=== PATIENT | male | born 2005 | race Caucasian/White ===

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

== ENCOUNTER 2025-04-09 19:09 | Inpatient (IN) ==
[2025-04-09 19:57] LABS: Hematocrit (blood only) 49.2 % (42.0-52.0); Hemoglobin 17.5 g/dL (14.0-18.0); Immature Granulocytes # (auto) 0.07 K/uL (0.01-0.20); Immature Granulocytes % (auto) 0.4 %; Mean Corpuscular Hemoglobin 29.2 pg (25.0-34.0); Mean Corpuscular Volume 82.0 fL (80.0-100.0); Platelet Count 365 K/uL (130-400); RDW Standard Deviation 37.7 fL (36.4-46.3); Red Blood Count 6.00 M/uL (4.70-6.10); White Blood Count 15.90 K/ul (4.8-10.8)
[2025-04-09 20:09] LABS: Appearance Urine Clear (Clear); Bacteria Urine Automated None Seen (None Seen); Cast Urine Automated 0-2 /lpf (0-2); Epithelial Cell Urine Auto 0-2 /hpf (0-2); Glucose Urine UA Negative (Negative); RBC Urine Automated 0-2 /hpf (0-2); WBC Urine Automated 0-5 /hpf (0-5)
[2025-04-09 20:15] LABS: Alanine Aminotransferase 32.0 U/L (7-52); Albumin Globulin Ratio 1.2 (0.9-2); Albumin Level 4.6 gm/dl (3.4-5.0); Alkaline Phosphatase 84.0 U/L (34-104); Anion Gap 11.0 (3-11); Bilirubin,Total 0.8 mg/dl (0.2-1.0); Blood Urea Nitrogen 14.0 mg/dl (6-23); Calcium 9.6 mg/dl (8.6-10.3); Carbon Dioxide 23.0 mmol/L (21-32); Chloride 105.0 mmol/L (98-107); Creatinine Clr Calc Pharmacy 148.6 ml/min; Globulin 3.7 gm/dl (2.5-4.0); Glucose 124.0 mg/dl (70-99(Fasting)); Potassium 3.6 mmol/L (3.5-5.1); Sodium 139.0 mmol/L (136-145); Total Protein 8.3 gm/dl (6.0-8.3)
[2025-04-09 20:29] LABS: Thyroid Stimulating Hormone 2.671 uIu/ml (0.300-4.500)
--- NOTE | 2025-04-09 21:15 | Emergency Department Note ---
History of Present Illness General Chief complaint: Mental Health Evaluation Stated complaint: MHE Time Seen by Provider: 04/09/25 19:39 Source: patient and family Mode of arrival: ambulatory Limitations: no limitations History of Present Illness Patient is a 19-year-old male with history of depression who presents for suicidal ideation. Patient reports he has been feeling like this on and off over the past several weeks but the thoughts have been getting worse. He states that he thought about stabbing himself in the throat with a knife and actually had a knife with him underneath his pillow last night. He also reports he has intermittent episodes that he calls "manic episodes" where he is unable to sleep for more than 3 hours at a time. He has never been diagnosed with bipolar disorder before but does take Lexapro at baseline for his depression. He has prior history of suicide attempt by suffocation. He also reports she has had a decrease in appetite recently has lost 6 pounds unintentionally in the past week. He reports he has some intermittent frontal lobe headaches that came on once he started his Lexapro 2 weeks prior. They are associated with flashers in his eyes that come and go. Denies any associated fevers, chills, neck stiffness, vision loss, double vision, slurred speech or facial droop. No numbness or weakness in his extremities. Denies drug or alcohol use at this time. No other medical complaints. Home Medications Medication Instructions Recorded Confirmed Type epinephrine 0.3 mg/0.3 mL 0.3 mg (0.3 mL) IM ONCE PRN 12/28/23 04/09/25 Rx injection, auto-injector anaphylaxis #1 dose pk dupilumab 300 mg/2 mL subcutaneous 300 mg (2 mL) subcut .COMPLEX #8 mL 05/18/24 04/09/25 Rx pen injector albuterol sulfate 2.5 mg/3 mL 2.5 mg (3 mL) inhalation Q4H PRN 07/07/24 04/09/25 Rx (0.083 %) solution for nebulization shortness of breath or wheezing #90 mL cholecalciferol (vitamin D3) 1,250 1,250 mcg PO .weekly 8 weeks #8 03/26/25 04/09/25 Rx mcg (50,000 unit) capsule caps escitalopram oxalate 10 mg tablet 10 mg PO DAILY 04/09/25 04/09/25 History (Lexapro) Allergies Allergy/AdvReac Type Severity Reaction Status Date / Time animal dander Allergy Unknown Congested Verified 04/09/25 20:42 pollen extracts Allergy Unknown Congested Verified 04/09/25 20:42 tree nut Allergy Unknown Congested Verified 04/09/25 20:42 egg white Allergy Unknown Congested Uncoded 04/09/25 20:42 Past Med/Surg History Problem List (Updated 04/09/25 @ 21:14 by Kavon Gonzales MD) Suicidal ideations (Acute) Vitamin D deficiency Anxiety MDD (major depressive disorder) Impaired fasting glucose Elevated blood pressure reading Overweight Eosinophilic esophagitis (~10/2021) Skin test positive for milk, eggs, nuts Allergic rhinitis Asthma (Acute 01/25/12) breo, PRN inhaler use Medical History Keratosis pilaris Inguinal pain Asthma Allergic rhinitis Elevated platelet count Slow to wake up after anesthesia History of COVID-19 Environmental and seasonal allergies Surgical History History of esophagogastroduodenoscopy (EGD) Hx of colonoscopy History of tonsillectomy and adenoidectomy Family History Father Irritable bowel syndrome (IBS) Asthma Mother No problems noted. Other No family history of adverse response to anesthesia Social History Smoking Status: Never smoker Second Hand Exposure: No; Do You Dip or Chew Tobacco: No; Hx Alcohol Use: No Hx Substance Use: No Preferred Language: [place] Communication Ability: Effective Visual Impairment: No Limitations Hearing Ability: Normal Commercial [employer] Estate [employer] Required: No Beliefs That Will Affect Care: None marital status: Single Current Living Situation: Family Current Living Situation Comment: lives with mom and dad current occupational status: unemployed Feels Safe at Home: Yes Childhood Exposure to Second-Hand Smoke: No Diet: regular caffeine: Yes Dental Care, Regularly: Yes Physical Activity Frequency: Does not Exercise Seatbelt Use: always Sunscreen Use: Yes Gender Identity: Male Assistive Devices: Nebulizer Review of Systems Review of systems negative outside of positive findings mentioned in HPI. Physical Exam Vital Signs Vital Signs - 24 hr 04/09/25 19:13 04/09/25 19:44 Temperature 36.8 C Temperature Source Temporal Artery Scan Pulse Rate 82 Pulse Rate [Left Finger] 102 H Respiratory Rate 20 18 Respiratory Effort / Characteristics Non-Labored Spontaneous Non-Labored Respiratory Depth Normal Normal Respiratory Pattern Regular Regular Blood Pressure 186/125 H Blood Pressure [Right Arm] 169/120 H Blood Pressure Mean 145 Blood Pressure Mean [Right Arm] 136 Blood Pressure Position Sitting Pulse Oximetry 97 97 Oxygen Delivery Method Room Air Room Air Sepsis Recent Fever Within 48 Hours No Sepsis New/Unexplained Change in Mental Status No Sepsis Action Taken by Nursing No Action Required See below Constitutional WD/WN, vitals as above Eyes PERRL, conjunctivae normal, anicteric sclerae ENMT external ear and nose normal, oropharynx normal Respiratory normal respiratory effort, lungs clear to auscultation Cardiovascular RRR, no murmur, no edema Gastrointestinal (Abdomen) normal bowel sounds, soft, nontender, no hepatosplenomegaly Skin no rashes, warm and dry Neurologic PERRL, EOMI, accommodation nl, no face palsy, no dysarthria Psychiatric A+Ox3, euthymic affect Apperance: appropriately dressed Eye Contact: good eye contact Speech: speech normal rate, rhythm, volume Affect: euthymic affect Thought Process: linear, logical thought process Suicidal Thoughts: + reports suicidal thoughts and + reports suicidal plan Homicidal Thoughts: denies suicidal thoughts and denies suicidal plan Hallucinations: no auditory hallucinations and no visual hallucinations Insight: good insight Judgment: + limited judgement Medical Decision Making Differential Diagnosis DDx includes but not limited to: Depression, anxiety, suicidal ideations, bipolar disorder, acute pñea, acute psychosis Medical Records Attestation: I reviewed the patient's medical records. Home Medications Current Medication List: was personally reviewed by me Laboratory Data Attestation: I reviewed the patient's lab results. 04/09/25 19:38 04/09/25 19:38 Lab Results 04/09/25 04/09/25 Range/Units 19:32 19:38 WBC 15.90 H (4.8-10.8) K/ul RBC 6.00 (4.70-6.10) M/uL Hgb 17.5 (14.0-18.0) g/dL Hct 49.2 (42.0-52.0) % MCV 82.0 (80.0-100.0) fL MCH 29.2 (25.0-34.0) pg MCHC 35.6 (32.0-36.0) g/dL RDW Std Deviation 37.7 (36.4-46.3) fL RDW Coeff of Bobbi 12.6 (11.5-14.5) % Plt Count 365 (130-400) K/uL MPV 10.9 (9.4-12.4) fL Immature Gran % (Auto) 0.4 % Neut % (Auto) 73.9 % Lymph % (Auto) 19.9 % [place] % (Auto) 4.7 % Eos % (Auto) 0.6 % Baso % (Auto) 0.5 % Neut # (Auto) 11.75 H (1.40-6.50) K/uL Lymph # (Auto) 3.16 (1.20-3.40) K/uL [place] # (Auto) 0.75 H (0.11-0.59) K/uL Eos # (Auto) 0.09 (0.00-0.50) K/uL Baso # (Auto) 0.08 (0.00-0.20) K/uL Immature Gran # (Auto) 0.07 (0.01-0.20) K/uL Sodium 139 (136-145) mmol/L Potassium 3.6 (3.5-5.1) mmol/L Chloride 105 (98-107) mmol/L Carbon Dioxide 23 (21-32) mmol/L Anion Gap 11 (3-11) BUN 14 (6-23) mg/dl Creatinine 0.99 (0.6-1.4) mg/dl Est Cr Clr Drug Dosing 148.6 ml/min eGFR 111.84 BUN/Creatinine Ratio 14.1 (10-20) Glucose 124 H (70-99(Fasting)) mg/dl Calcium 9.6 (8.6-10.3) mg/dl Total Bilirubin 0.8 (0.2-1.0) mg/dl AST 22 (13-39) U/L ALT 32 (7-52) U/L Alkaline Phosphatase 84 (34-104) U/L Total Protein 8.3 (6.0-8.3) gm/dl Albumin 4.6 (3.4-5.0) gm/dl Globulin 3.7 (2.5-4.0) gm/dl Albumin/Globulin Ratio 1.2 (0.9-2) TSH 2.671 (0.300-4.500) uIu/ml Urine Color Yellow Urine Appearance Clear (Clear) Urine pH 6.0 (4.5-7.5) Ur Specific Couch 1.027 (1.000-1.030) Urine Protein 1+ H (Negative) Urine Glucose (UA) Negative (Negative) Urine Ketones Trace H (Negative) Urine Blood Negative (Negative) Urine Nitrite Negative (Negative) Urine Bilirubin Negative (Negative) Urine Urobilinogen Negative (Negative) Ur Leukocyte Esterase Negative (Negative) Urine WBC (Auto) 0-5 (0-5) /hpf Urine RBC (Auto) 0-2 (0-2) /hpf U Hyaline Cast (Auto) 0-2 (0-2) /lpf U Epithel Cells (Auto) 0-2 (0-2) /hpf Urine Bacteria (Auto) None Seen (None Seen) Urine Comment Ethyl Alcohol mg/dL < 10.0 (<10.0) mg/dl SARS-CoV-2, RNA, NAAT NEGATIVE (NEGATIVE) Blood Pressure Blood Pressure Findings: Elevated blood pressure Blood Pressure Disposition: elevated BP felt to be situational MDM Narrative Patient is a 19-year-old male who presents for suicidal ideations. He is cooperative and appropriate here on my examination. I did speak with him and his parents who are at bedside who are currently. He has a history of depression and prior suicide attempts in the past. Did not actually stabbed himself with a knife. Did not require any medication for agitation or acute psychosis while here in the ED. Patient is willing to stay voluntarily to be evaluated by psychiatry. Lab work was ordered and reviewed. Mild leukocytosis noted. Likely adrenergic reaction in the setting of his ongoing stressors. No obvious source of infection or fever here today. Remaining lab work nonconcerning. Patient does mention intermittent headaches for the past 2 weeks which possibly could be a side effect of his recent start of Lexapro versus tension headache versus migraine headache. No focal neurologic deficits, or red flags on history concerning for underlying emergent cause of his headaches. His pain is tolerable here in the ED and he is not requesting anything for his headache at this time. At this point patient is medically cleared for psychiatric admission. Impression & Plan Suicidal ideations Discharge Plan Visit Data Chief Complaint: Mental Health Evaluation Stated Complaint: MHE ED Provider: Kavon Gonzales Discharge Problem: Suicidal ideations Patient Disposition: Admitted As Inpatient Condition: Good Forms Stand Alone Forms: My [facility], Suicide Prevention Resources Prescriptions Prescriptions: No Action epinephrine 0.3 mg/0.3 mL auto-injector 0.3 mg IM ONCE PRN (Reason: anaphylaxis) Qty: 1 3RF Patient Comments: never used. Rx Instructions: May repeat once in 10 minutes if symptoms have not improved with first dose dupilumab 300 mg/2 mL pen injector 300 mg subcut .COMPLEX Qty: 8 11RF Rx Instructions: INJECT 300 mg subcutaneously EVERY MONTH APPROVED GOOD 05/27/23-07/24/24 albuterol sulfate 2.5 mg /3 mL (0.083 %) solution for nebulization 2.5 mg inhalation Q4H PRN (Reason: shortness of breath or wheezing) Qty: 90 6RF Patient Comments: patient reports it was several weeks ago when he last used this medication. cholecalciferol (vitamin D3) 1,250 mcg (50,000 unit) capsule 1,250 mcg PO .weekly 56 Days Qty: 8 0RF escitalopram oxalate [Lexapro] 10 mg tablet 10 mg PO DAILY Referrals Referrals: Ron Roldan DO [Primary Care Provider] -
[2025-04-09 21:18] LABS: Amphetamines+Metham, Urine Neg (Neg); MDMA (Ecstacy), Urine Neg (Neg); Marijuana, Urine Neg (Neg)
[2025-04-09 21:31] LABS: Acetaminophen < 3 ug/ml (10-30); Salicylate < 3.0 mg/dl (3.0-30)
[2025-04-09] MEDS ORDERED: SODIUM CHLORIDE 0.65% NA SOLN 45 ML (OCEAN) PRN (22:40)
[2025-04-09] MEDS ORDERED: ACETAMINOPHEN 325 MG TAB PO PRN (22:40)
[2025-04-09] MEDS ORDERED: BISMUTH SUBSALICYLATE 262 MG CHEW PO PRN (22:40)
[2025-04-09] MEDS ORDERED: MAGNESIUM HYDROXIDE SUSP 30 ML UDC PO PRN (22:40)
[2025-04-09] MEDS ORDERED: ALUMINUM/MAGNESIUM SUSP 30 ML UDC PO PRN (22:40)
[2025-04-09] MEDS ORDERED: LORazepam 1 MG TAB PO PRN (22:43)
[2025-04-10] MEDS ORDERED: ALBUTEROL HFA 8 GM INHALER INH PRN (00:14)
--- NOTE | 2025-04-10 10:34 | History & Physical ---
Date of Service April 10, 2025 Impression / Recommendations Impression MARCUS RICHARDS is a 19-year-old man who currently lives in [place] with his mother and father, has a history of depression, ADHD, anxiety, speech and auditory processing disorders and was admitted on 04/09/25 22:33 on a 201 voluntary commitment for worsening depression and SI and rehearsal behaviors of using a knife. Diagnostically consistent with unspecified depression with differential including major depressive disorder versus bipolar affective disorder type II current depressive episode given possible family history of bipolar disorder, depression starting at a young age and possible history of hypomania versus borderline personality disorder given history of mood lability, self-harm, chronic intermittent SI but also with stable relationships and no known history of anger outbursts. Additionally, some of his episodes of hypomania-type symptoms may also represent increased impulsivity and hyperactivity related to ADHD rather than a bipolar spectrum disorder. He also meets criteria for gene ralized anxiety disorder with panic attacks and possible OCD. His description of at times quite fixated and more atypical interests could overlap with ASD but seems he has good social-communication and social reciprocity skills. Discussed that I also wonder about CALVIN given his difficulty sleeping, low energy, headaches, increased blood pressure and staff observation overnight of very loud snoring. CALVIN if undiagnosed and untreated can lead to depression and can make depression less responsive to medication treatment. Discussed medication treatment options in detail. Discussed risks, benefits and alternatives. Patient would like to start and consented to sertraline for depression, anxiety and possible OCD as well as clonidine for ADHD and off-label for anxiety/insomnia and trazodone as needed for insomnia/depression. Reviewed side effects including but not limited to: GI, CRENSHAW, sexual side effects, and counseled on black box warning of potential for emergence of or increased SI and need to let staff know should this occur or should they feel unsafe. Also discussed importance of seeking emergency care following discharge if this side effect occurs in the future with sertraline; low BP/syncope with clonidine and need to make positional changes slowly and sedation/weight gain/priapism with trazodone. MNPR due to loud snoring which was disruptive to roommate Overall I spent a total of 75 minutes for this admission including review of chart records, review of labwork, direct evaluation of the patient (60 minutes interview), counseling the patient, ordering medication, risk assessment, discussion with the psychiatric liason RN and documentation in the electronic health record. (1) Depression with suicidal ideation: (2) Generalized anxiety disorder with panic attacks: (3) ADHD: (4) Vitamin D deficiency: (5) Eosinophilic esophagitis: Plan 04/10/2025: The patient was admitted to the [facility] ([facility]) on q15 min checks (behavioral with suicide precautions) for safety. The patient will participate in group, recreational, and milieu therapies and will be offered additional individual and family sessions as clinically appropriate. -Medications: * discontinue escitalopram due to ongoing side effects * start sertraline 25 mg daily * start trazodone 50mg HS prn for insomnia * start clonidine 0.1mg HS * continue Vit D supplementation qweekly -Symptom questionnaires: Laurent BPD, MDQ, PHQ-9, ANETA-7, Y-BOCS, [place] sleepiness scale - to explore outpatient referrals, we discussed option for IOP to focus on CBT/DBT skills which he's interested in -Consider outpatient sleep study (he had one in childhood prior to tonsillectomy) given concern for possible CALVIN Inventory Assets Strengths: supportive relationships, willing to get treatment Needs: safety and stabilization, medication adjustment, additional coping skills, increased outpatient services Suicide Risk Level Suicide Risk Level: Moderate (q15 min suicide checks) (depression with rehearsal behaviors prior to admission but now denies SI, reports some improvement in mood and feels able to alert staff if he needs support or feels unsafe ) Risk Factors Assessment Male: Yes : Yes Do You Have Access To A Gun?: No (guns locked and he has no access to keys) Health Problems: Yes Mental Health Diagnoses: Yes Substance Use Disorders: No Previous Attempt: Yes Family History of Suicide: Yes (cousin with attempt) Previous Psychiatric Hospitalization: No Hopelessness: Yes (some but also future-oriented) Protective Factors Assessment : No Responsible for Young Children: No Employed: Yes ([employer]) Stable Relationships: Yes Supportive Family: Yes Good Rapport with Provider: Yes (but no outpatient psych/therapy providers) Psychiatric History Identifying Data MARCUS RICHARDS is a 19-year-old man who currently lives in [place] with his mother and father, has a history of depression, ADHD, anxiety, speech and auditory processing disorders and was admitted on 04/09/25 22:33 on a 201 voluntary commitment for worsening depression and SI and rehearsal behaviors of using a knife. Chief Complaint "It accumulated and I was exhausted and the knife was there". History of Present Illness Marcus presents for psychiatric admission for worsening depression and SI over the past two months with recent plan of using a knife culminating in rehearsal behavior/near attempt of putting a knife to his neck and then sleeping with it under his pillow two nights ago. There have been no acute stressors or recent changes but he describes some more chronic psychosocial stressors including bullying/trauma in elementary/middle/high school and started a new job about 6 months ago which has been very busy and stressful at times. Two nights ago he had increased SI at bedtime and "I kind of felt manic, I couldn't sit still, I couldn't think" and neither of his friends was available to talk, his grandparents were asleep and his parents were at their home and he thought about using the knife and put it to his skin but then put it down and fell asleep with it next to his pillow. A few weeks ago he did look up where his heart is and where one would need to stab to harm the heart but he felt this research actually helped "demotivate me" because he read about how much pain it could cause and he decided he would not try to kill himself that way. He denies researching anything about where to cut himself on his neck and did not break the skin with the knife. He thought about how much his friends and family would be negatively impacted if he and that's what stopped him from acting on his suicidal thoughts. He ultimately texted his friend saying he'd miss her and she reached out to his parents. He presented to the ED the next day. He's been having suicidal thoughts for "months now" and that they have become more difficult to manage, describing feeling "mentally exhausted from constantly fighting these thoughts". He recalls having suicidal ideation for 5 years straight during childhood. He feels that typically he can cope with these using distraction but feels like due to worsening depression and feeling exhausted that two nights ago he felt unable to avoid acting on the thoughts. Recently he feels like "my brain went blank". He's been having a lot of headaches recently with some flickering light appearance. The headaches started right around the time he started escitalopram. He's been having a lot of nausea since starting the escitalopram and believes he's lost about 6 lbs in a few days. He endorses depressive symptoms including tearfulness, anhedonia ("everything feels like a chore"), decreased motivation ("hard to even brush my teeth for a week"), self-guilt ("I didn't feel like I deserved to live"), helplessness, hopelessness, decreased energy, decreased appetite (mostly due to nausea), and decreased sleep about 2-4 hours per night (difficulty falling asleep). SI has been occurring intermittently throughout his life but worsened about two months ago to daily thoughts which he notes "just gets taxing", he started to think about plans of using a knife about 3 weeks ago before he started the escitalopram. He identifies that not having his craving knife would help him feel safer and he plans to give this to his parents. He endorses symptoms of anxiety including generalized worries, shakiness, easily overwhelmed, can get worse in social situations and panic attacks (rare usually but increased recently to about 1-2 times per week). Anxiety has also increased over the last few months. He describes having intense interests as a child including "spending hours on equations" and describes being "hyper-curious about everything". He is currently prescribed escitalopram 10mg (started 2 weeks ago, had nausea and headaches since started it, hasn't noticed any benefits so far). Today he reports his mood feels better, "like a 9, today" because he feels that "the real world is stressful and taking a break from that can help". He notes that "typically I'm happy throughout the day and nighttime hits the hardest". Psychiatric ROS notable for possible history of hypomania with decreased need for sleep for 2-3 nights, and also reports always being a night owl but at times with some increased risk taking and increased energy. Possible OCD traits (will wash hands three times in a row until they feel "clean"); history fo excessive exercising to lose weight and restricting to lose eat and other times would binge eat, he feels this is stable currently; history of self-harm via pinching. Psychiatric ROS notable for no history or current symptoms of psychosis, PTSD. Past Psychiatric History Current Psychiatric Diagnosis: Depression and anxiety, unspecified mood disorder Outpatient Services: none Previous Psych Admissions: never Do You Have Access To A Gun?: No (guns locked and he has no access to keys) History of Previous Suicide Attempt: Yes Describe Attempts in the Past: 200x over 5 yrs in elementary toni-suffocation but rehearsal behaviors Past Medication Trials: -Wellbutrin about a month ago (ongoing SI) Past Head Trauma/Neuro History History of Concussion/Seizure: No Allergies Allergy/AdvReac Type Severity Reaction Status Date / Time animal dander Allergy Unknown Congested Verified 04/09/25 20:42 egg Allergy Unknown "egg Verified 04/10/25 12:11 white" congested pollen extracts Allergy Unknown Congested Verified 04/09/25 20:42 tree nut Allergy Unknown Congested Verified 04/09/25 20:42 Home Medications Medication Instructions Recorded Confirmed Type epinephrine 0.3 mg/0.3 mL 0.3 mg (0.3 mL) IM ONCE PRN 12/28/23 04/09/25 Rx injection, auto-injector anaphylaxis #1 dose pk dupilumab 300 mg/2 mL subcutaneous 300 mg (2 mL) subcut .COMPLEX #8 mL 05/18/24 04/09/25 Rx pen injector albuterol sulfate 2.5 mg/3 mL 2.5 mg (3 mL) inhalation Q4H PRN 07/07/24 04/09/25 Rx (0.083 %) solution for nebulization shortness of breath or wheezing #90 mL cholecalciferol (vitamin D3) 1,250 1,250 mcg PO .weekly 8 weeks #8 03/26/25 04/09/25 Rx mcg (50,000 unit) capsule caps escitalopram oxalate 10 mg tablet 10 mg PO DAILY 04/09/25 04/09/25 History (Lexapro) Family History Family History of: Depression (maternal and paternal), Anxiety (maternal and paternal), Suicide Attempts (maternal cousin) and Other-List under Comment (maternal cousin with suspected schizophrenia; possible bipolar d/o in maternal grandfather) Alcohol History Hx of Alcohol Use Over the Past 12 Months: No AUDIT Total Score: 0 Smoking Use Have You Smoked or Used Tobacco Products in the Last 30 Days: No Smoking Status: Never smoker Substance History Hx of Prescription Med Misuse Over the Past 12 Months: No Hx of Over the Counter Med Misuse Over the Past 12 Months: No Hx of Inhalent Misuse Over the Past 12 Months: No Hx of Organic Substance Use Over the Past 12 Months: No Hx of Illegal Substances/Street Drug Use Over Past 12 Months: No Problems as a Result of Past Substance Use: None Identified Personal History Living Arrangements: Home Highest Grade Completed: High School Graduate (-IEP for depression/anxiety/stress; speech issues for pronunciation, ADHD, auditory processing disorder) 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) Marital Status: Single Number Of Children: none Beliefs That Will Affect Care: None Current Legal Problems: No Hx Legal Problems: No Hx Traumatic Life Events: Yes Patient History Medical History (Updated 04/10/25 @ 12:39 by Clarissa Barone MD) ADHD Eosinophilic esophagitis (~10/2021) Skin test positive for milk, eggs, nuts Keratosis pilaris Inguinal pain Asthma PRN inhaler use Allergic rhinitis follows w/ Dr Charlton Elevated platelet count Slow to wake up after anesthesia History of COVID-2020- fever, congestion, fatigue, resolved Environmental and seasonal allergies Surgical History History of esophagogastroduodenoscopy (EGD) Hx of colonoscopy History of tonsillectomy and adenoidectomy Family History Father Irritable bowel syndrome (IBS) Asthma Mother No problems noted. Other No family history of adverse response to anesthesia Social History Smoking Status: Never smoker Second Hand Exposure: No; Do You Dip or Chew Tobacco: No; Hx Alcohol Use: No Hx Substance Use: No Preferred Language: Lao Communication Ability: Effective Visual Impairment: No Limitations Hearing Ability: Normal Window Systems Administrator Required: No Beliefs That Will Affect Care: None marital status: Single Current Living Situation: Family Current Living Situation Comment: lives with mom and dad current occupational status: unemployed Feels Safe at Home: Yes Childhood Exposure to Second-Hand Smoke: No Diet: regular caffeine: Yes Dental Care, Regularly: Yes Physical Activity Frequency: Does not Exercise Seatbelt Use: always Sunscreen Use: Yes Gender Identity: Male Assistive Devices: None and Nebulizer Review of Systems Review of Systems: All systems reviewed & are unremarkable except as noted in HPI & below Physical Exam Psychiatric: Orientation: alert and oriented x 3 Apperance: appropriately dressed and appropriately groomed Eye Contact: good eye contact Motor Behavior: no abnormal motor movements Speech: normal rate/rhythm/volume of speech Affect: + depressed affect and + anxious affect Mood: + depressed mood and + anxious mood Thought Process: goal directed thought process Thought Content: reality based without delusions Suicidal Thoughts: denies suicidal plan (none for hospital, rehearsal behaviors prior to admission) and denies suicidal intent; + reports suicidal thoughts (intermittent ) Homicidal Thoughts: denies homicidal thoughts Hallucinations: no auditory hallucinations and no visual hallucinations Cognition: recent memory grossly intact, remote memory grossly intact, attention grossly intact and language grossly intact Estimated Intelligence: consistent with education level Insight: + fair insight Judgment: + fair judgement Vital Signs (Past 24 Hours): Last Vital Signs Temp 36.3 C L 04/10/25 06:29 Pulse 78 04/10/25 06:30 Resp 16 04/10/25 06:29 BP 118/67 04/10/25 06:30 Pulse Ox 97 04/09/25 23:06 O2 Del Method Room Air 04/09/25 23:06 Exam Statement: A physical exam was performed in the ED by Dr. Gonzales for the purposes of medical clearance. I accept that physical as correct and adequate for the purposes of the inpatient physical exam. Results & Data ([facility]) Laboratory Results Laboratory Results - last 24 hr 04/09/25 04/09/25 19:32 19:38 WBC 15.90 H RBC 6.00 Hgb 17.5 Hct 49.2 MCV 82.0 MCH 29.2 MCHC 35.6 RDW Std Deviation 37.7 RDW Coeff of Bobbi 12.6 Plt Count 365 MPV 10.9 Immature Gran % (Auto) 0.4 Neut % (Auto) 73.9 Lymph % (Auto) 19.9 [place] % (Auto) 4.7 Eos % (Auto) 0.6 Baso % (Auto) 0.5 Neut # (Auto) 11.75 H Lymph # (Auto) 3.16 [place] # (Auto) 0.75 H Eos # (Auto) 0.09 Baso # (Auto) 0.08 Immature Gran # (Auto) 0.07 Sodium 139 Potassium 3.6 Chloride 105 Carbon Dioxide 23 Anion Gap 11 BUN 14 Creatinine 0.99 Est Cr Clr Drug Dosing 148.6 eGFR 111.84 BUN/Creatinine Ratio 14.1 Glucose 124 H Calcium 9.6 Total Bilirubin 0.8 AST 22 ALT 32 Alkaline Phosphatase 84 Total Protein 8.3 Albumin 4.6 Globulin 3.7 Albumin/Globulin Ratio 1.2 TSH 2.671 Urine Color Yellow Urine Appearance Clear Urine pH 6.0 Ur Specific [place] 1.027 Urine Protein 1+ H Urine Glucose (UA) Negative Urine Ketones Trace H Urine Blood Negative Urine Nitrite Negative Urine Bilirubin Negative Urine Urobilinogen Negative Ur Leukocyte Esterase Negative Urine WBC (Auto) 0-5 Urine RBC (Auto) 0-2 U Hyaline Cast (Auto) 0-2 U Epithel Cells (Auto) 0-2 Urine Bacteria (Auto) None Seen Urine Comment Salicylates < 3.0 L Urine Opiates Screen Neg Ur Methadone, Qual Neg Urine Fentanyl Screen Neg Acetaminophen < 3 L Urine Barbiturates Neg Ur Phencyclidine (PCP) Neg U Amphetamin/Meth Scrn Neg MDMA (Ecstasy) Screen Neg U Benzodiazepines Scrn Neg Ur Cocaine Metabolite Neg U Marijuana (THC) Screen Neg Ethyl Alcohol mg/dL < 10.0 SARS-CoV-2, RNA, NAAT NEGATIVE Current Inpatient Medications Current Inpatient Medications: Current Inpatient Medications Acetaminophen (Acetaminophen 325 Mg Tab) 650 mg PO Q4H PRN PRN Reason: Headache or Minor Fever Stop: 05/09/25 22:39 Al Hydrox/Mg Hydrox/Simethicone (Aluminum/Magnesium Susp 30 Ml Udc) 30 ml PO Q4H PRN PRN Reason: GI Upset Stop: 05/09/25 22:39 Albuterol (Albuterol Hfa 8 Gm Inhaler) 2 puffs INH QIDR PRN PRN Reason: Shortness Of Breath Or Wheezing Stop: 05/10/25 00:13 Bismuth Subsalicylate (Bismuth Subsalicylate 262 Mg Chew) 2 tab PO Q30M PRN PRN Reason: Loose Stool/Diarrhea Stop: 05/09/25 22:39 Hydroxyzine HCl (Hydroxyzine Hcl 25 Mg Tab) 50 mg PO HSZ PRN PRN Reason: Insomnia Stop: 05/09/25 22:39 Hydroxyzine HCl (Hydroxyzine Hcl 25 Mg Tab) 25 mg PO Q4H PRN PRN Reason: Anxiety Stop: 05/09/25 22:39 Lorazepam (Lorazepam 1 Mg Tab) 1 mg PO BID PRN PRN Reason: Agitation Stop: 05/09/25 22:42 Magnesium Hydroxide (Magnesium Hydroxide Susp 30 Ml Udc) 30 ml PO DAILY PRN PRN Reason: Constipation Stop: 05/09/25 22:39 Sodium Chloride (Sodium Chloride 0.65% Na Soln 45 Ml ([place])) 1 - 2 sprays NA PRN PRN PRN Reason: Nasal Dryness/Congestion Stop: 05/09/25 22:39
[2025-04-10] MEDS ORDERED: ALBUTEROL 0.083% NEBU SOLN 3 ML VIAL INH PRN (11:37)
[2025-04-10] MEDS: SERTRALINE HCL 50 MG TABLET PO SCH (11:48)
--- NOTE | 2025-04-11 08:27 | Psychiatric Progress Note ---
Date of Service April 11, 2025 Impression / Recommendations Impression SONU RICHARDS is a 19-year-old man who currently lives in [place] with his mother and father, has a history of depression, ADHD, anxiety, speech and auditory processing disorders and was admitted on 04/09/25 22:33 on a 201 voluntary commitment for worsening depression and SI and rehearsal behaviors of using a knife. Diagnostically consistent with unspecified depression with differential including major depressive disorder versus bipolar affective disorder type II current depressive episode given possible family history of bipolar disorder, depression starting at a young age and possible history of hypomania versus borderline personality disorder given history of mood lability, self-harm, chronic intermittent SI but also with stable relationships and no known history of anger outbursts. Additionally, some of his episodes of hypomania-type symptoms may also represent increased impulsivity and hyperactivity related to ADHD rather than a bipolar spectrum disorder. He also meets criteria for gen eralized anxiety disorder with panic attacks and possible OCD. His description of at times quite fixated and more atypical interests could overlap with ASD but seems he has good social-communication and social reciprocity skills. Discussed that I also wonder about CALVIN given his difficulty sleeping, low energy, headaches, increased blood pressure and staff observation overnight of very loud snoring. CALVIN if undiagnosed and untreated can lead to depression and can make depression less responsive to medication treatment. A: Depression improving, suspect the degree to which he reports may be partially due to some minimization vs flight into health driven by social anxiety and homesickness and difficulty utilizing new coping skills. He's tolerating medication changes so far, he consents to ongoing sertraline titration to target depression, anxiety and OCD. Reviewed and discussed symptom questionnaires which were notable for: PHQ-9 score of 24 (3 for Q9), ANETA-7 score of 19, MDQ positive screen (possible BPAD type II, but also never with negative consequences from past episodes of possible hypomania), De La Torre positive screen (possible but also suspect some symptom overlap in setting of depression) and positive Y-BOCS (consistent with OCD & symptoms interfere with functioning and work) and score of 7 on [place] Sleepiness Scale so reasonable to consider outpatient CALVIN workup/sleep study given snoring and co-occurring depression. He prefers not to start a mood stabilizer at this time and instead to track his sleep and mood overtime which is reasonable, reviewed potential risk of hypomania/peña with sertraline which he understands. MNPR due to loud snoring which was disruptive to roommate Overall, I spent a total of 50 minutes on this case including meeting with the patient, reviewing the chart, nursing report, multidisciplinary team meeting, orders, and documentation. (1) Depression with suicidal ideation: (2) Generalized anxiety disorder with panic attacks: (3) Obsessive compulsive disorder: (4) ADHD: (5) Vitamin D deficiency: (6) Eosinophilic esophagitis: (7) Major depressive disorder with current active episode: Plan 04/11/2025: -Increase sertraline to 50mg daily tomorrow -Exploring IOP vs individual outpt therapy 04/10/2025: The patient was admitted to the [facility] ([facility] unit) on q15 min checks (behavioral with suicide precautions) for safety. The patient will participate in group, recreational, and milieu therapies and will be offered additional individual and family sessions as clinically appropriate. -Medications: * discontinue escitalopram due to ongoing side effects * start sertraline 25 mg daily * start trazodone 50mg HS prn for insomnia * start clonidine 0.1mg HS * continue Vit D supplementation qweekly -Symptom questionnaires: De La Torre BPD, MDQ, PHQ-9, ANETA-7, Y-BOCS, [place] sleepiness scale - to explore outpatient referrals, we discussed option for IOP to focus on CBT/DBT skills which he's interested in -Consider outpatient sleep study (he had one in childhood prior to tonsillectomy) given concern for possible CALVIN Inventory Assets Strengths: supportive relationships, willing to get treatment Needs: safety and stabilization, medication adjustment, additional coping skills, increased outpatient services Suicide Risk Level Suicide Risk Level: Moderate (q15 min suicide checks) (depression with rehearsal behaviors prior to admission but now denies SI, reports some improvement in mood and feels able to alert staff if he needs support or feels unsafe ) Risk Factors Assessment Male: Yes : Yes Do You Have Access To A Gun?: No (guns locked and he has no access to keys) Health Problems: Yes Mental Health Diagnoses: Yes Substance Use Disorders: No Previous Attempt: Yes Family History of Suicide: Yes (cousin with attempt) Previous Psychiatric Hospitalization: No Hopelessness: Yes (some but also future-oriented) Protective Factors Assessment : No Responsible for Young Children: No Employed: Yes ([employer]) Stable Relationships: Yes Supportive Family: Yes Good Rapport with Provider: Yes (but no outpatient psych/therapy providers) Interval History Identifying Information SONU RICHARDS is a 19-year-old man who currently lives in [place] with his mother and father, has a history of depression, ADHD, anxiety, speech and auditory processing disorders and was admitted on 04/09/25 22:33 on a 201 voluntary commitment for worsening depression and SI and rehearsal behaviors of using a knife. Chief Complaint "Doing pretty good but I'm getting restless and homesick". Review of Systems Sleep Information Total Hours of Sleep: 8 Meal Information Percent Meal Consumed - Breakfast: 0 Percent Meal Consumed - Lunch: 100 Percent Meal Consumed - Dinner: 100 Subjective Subjective Patient was seen & assessed and interval progress reviewed with treatment team. Attended all groups and participated. Rated his mood "10" and "fantastic". Today he reports hopefulness he can discharge tomorrow due to feeling "restless and homesick". Reviewed things that he can do here to stay occupied like reading books. Also processed that it during times of increased stress and discomfort when we can best test his coping skills and learn new healthier ways of managing distress while in the supportive environment of the hospital. he agrees this makes sense. [facility], hasn't called yet but reviewed it with his parents when they visited last evening. No side effects from the medications. No headache today, still has low appetite but eating and denies any nausea. Denies SI today. Physical Exam Psychiatric Orientation: alert and oriented x 3 Apperance: appropriately dressed and appropriately groomed Eye Contact: good eye contact Motor Behavior: no abnormal motor movements Speech: normal rate/rhythm/volume of speech Affect: + anxious affect and + constricted affect Mood: + anxious mood Thought Process: goal directed thought process Thought Content: reality based without delusions Suicidal Thoughts: denies suicidal plan and denies suicidal intent; + reports suicidal thoughts (intermittent, denies today ) Homicidal Thoughts: denies homicidal thoughts Hallucinations: no auditory hallucinations and no visual hallucinations Cognition: recent memory grossly intact, remote memory grossly intact, attention grossly intact and language grossly intact Estimated Intelligence: consistent with education level Insight: + fair insight Judgment: + fair judgement Vital Signs (Past 24 Hours) Last Vital Signs Temp 36.6 C 04/11/25 06:40 Pulse 74 04/11/25 06:40 Resp 20 04/11/25 06:40 BP 126/85 04/11/25 06:40 Pulse Ox 99 04/11/25 06:40 O2 Del Method Room Air 04/11/25 06:40 Results & Data ([facility]) Current Inpatient Medications Current Inpatient Medications: Current Inpatient Medications Acetaminophen (Acetaminophen 325 Mg Tab) 650 mg PO Q4H PRN PRN Reason: Headache or Minor Fever Stop: 05/09/25 22:39 Al Hydrox/Mg Hydrox/Simethicone (Aluminum/Magnesium Susp 30 Ml Udc) 30 ml PO Q4H PRN PRN Reason: GI Upset Stop: 05/09/25 22:39 Albuterol (Albuterol Hfa 8 Gm Inhaler) 2 puffs INH QIDR PRN PRN Reason: Shortness Of Breath Or Wheezing Stop: 05/10/25 00:13 Albuterol (Albuterol 0.083% Nebu Soln 3 Ml Vial) 2.5 mg INH Q4H PRN; Protocol PRN Reason: shortness of breath or wheezing Stop: 05/10/25 11:36 Bismuth Subsalicylate (Bismuth Subsalicylate 262 Mg Chew) 2 tab PO Q30M PRN PRN Reason: Loose Stool/Diarrhea Stop: 05/09/25 22:39 Clonidine HCl (Clonidine Hcl 0.1 Mg Tab) 0.1 mg PO HS LEEANN Stop: 05/10/25 21:59 Last Admin: 04/10/25 21:18 Dose: 0.1 mg Hydroxyzine HCl (Hydroxyzine Hcl 25 Mg Tab) 50 mg PO HSZ PRN PRN Reason: Insomnia Stop: 05/09/25 22:39 Hydroxyzine HCl (Hydroxyzine Hcl 25 Mg Tab) 25 mg PO Q4H PRN PRN Reason: Anxiety Stop: 05/09/25 22:39 Lorazepam (Lorazepam 1 Mg Tab) 1 mg PO BID PRN PRN Reason: Agitation Stop: 05/09/25 22:42 Magnesium Hydroxide (Magnesium Hydroxide Susp 30 Ml Udc) 30 ml PO DAILY PRN PRN Reason: Constipation Stop: 05/09/25 22:39 Non-Formulary Medication (Cholecalciferol (Vitamin D3)) 1,250 mcg PO Mo@0900 LEEANN Stop: 05/10/25 11:44 Last Admin: 04/10/25 13:42 Dose: 1,250 mcg Sertraline HCl (Sertraline Hcl 50 Mg Tablet) 25 mg PO QAM LEEANN Stop: 05/10/25 11:34 Last Admin: 04/10/25 11:48 Dose: 25 mg Sodium Chloride (Sodium Chloride 0.65% Na Soln 45 Ml ([place])) 1 - 2 sprays NA PRN PRN PRN Reason: Nasal Dryness/Congestion Stop: 05/09/25 22:39 Trazodone HCl (Trazodone Hcl 50 Mg Tab) 50 mg PO HS PRN PRN Reason: insomnia Stop: 05/10/25 21:59 Mental Health & Subst Abuse Tx Therapist Name of Therapist: n/a Diesel Dragline Operator Name of Diesel Dragline Operator: n/a Post Discharge Appointments Primary Care Physician Name Of Family Doctor/PCP: Ron Roldan - [facility] [place] [facility]
[2025-04-12 06:36] VITALS: RESP 16
[2025-04-12] MEDS: SERTRALINE HCL 50 MG TABLET PO SCH (08:42)
--- NOTE | 2025-04-12 08:44 | Psychiatric Progress Note ---
Date of Service April 12, 2025 Impression / Recommendations Impression SONU RICHARDS is a 19-year-old man who currently lives in [place] with his mother and father, has a history of depression, ADHD, anxiety, speech and auditory processing disorders and was admitted on 04/09/25 22:33 on a 201 voluntary commitment for worsening depression and SI and rehearsal behaviors of using a knife. Diagnostically consistent with unspecified depression with differential including major depressive disorder versus bipolar affective disorder type II current depressive episode given possible family history of bipolar disorder, depression starting at a young age and possible history of hypomania versus borderline personality disorder given history of mood lability, self-harm, chronic intermittent SI but also with stable relationships and no known history of anger outbursts. Additionally, some of his episodes of hypomania-type symptoms may also represent increased impulsivity and hyperactivity related to ADHD rather than a bipolar spectrum disorder. He also meets criteria for gen eralized anxiety disorder with panic attacks and possible OCD. His description of at times quite fixated and more atypical interests could overlap with ASD but seems he has good social-communication and social reciprocity skills. Discussed that I also wonder about CALVIN given his difficulty sleeping, low energy, headaches, increased blood pressure and staff observation overnight of very loud snoring. CALVIN if undiagnosed and untreated can lead to depression and can make depression less responsive to medication treatment. A: Depression continues to improve with no SI today. He is tolerating the m edication changes well with improvement of nausea and headaches with switch to sertraline from escitalopram. he is motivated for IOP. MNPR due to loud snoring which was disruptive to roommate Overall, I spent a total of 35 minutes on this case including meeting with the patient, reviewing the chart, nursing report, orders, and documentation. (1) Depression with suicidal ideation: (2) Generalized anxiety disorder with panic attacks: (3) Obsessive compulsive disorder: (4) ADHD: (5) Vitamin D deficiency: (6) Eosinophilic esophagitis: (7) Major depressive disorder with current active episode: Plan 04/12/2025: -Continue current medications and treatment plan 04/11/2025: -Increase sertraline to 50mg daily tomorrow -Exploring IOP vs individual outpt therapy 04/10/2025: The patient was admitted to the [facility] on q15 min checks (behavioral with suicide precautions) for safety. The patient will participate in group, recreational, and milieu therapies and will be offered additional individual and family sessions as clinically appropriate. -Medications: * discontinue escitalopram due to ongoing side effects * start sertraline 25 mg daily * start trazodone 50mg HS prn for insomnia * start clonidine 0.1mg HS * continue Vit D supplementation qweekly -Symptom questionnaires: Laurent BPD, MDQ, PHQ-9, ANETA-7, Y-BOCS, [place] sleepiness scale - to explore outpatient referrals, we discussed option for IOP to focus on CBT/DBT skills which he's interested in -Consider outpatient sleep study (he had one in childhood prior to tonsillectomy) given concern for possible CALVIN Inventory Assets Strengths: supportive relationships, willing to get treatment Needs: safety and stabilization, medication adjustment, additional coping skills, increased outpatient services Suicide Risk Level Suicide Risk Level: Moderate (q15 min suicide checks) (depression with rehearsal behaviors prior to admission but now denies SI, reports improvement in mood, improved coping skills and feels able to alert staff if he needs support or feels unsafe ) Risk Factors Assessment Male: Yes : Yes Do You Have Access To A Gun?: No (guns locked and he has no access to keys) Health Problems: Yes Mental Health Diagnoses: Yes Substance Use Disorders: No Previous Attempt: Yes Family History of Suicide: Yes (cousin with attempt) Previous Psychiatric Hospitalization: No Hopelessness: Yes (some but also future-oriented) Protective Factors Assessment : No Responsible for Young Children: No Employed: Yes ([employer]) Stable Relationships: Yes Supportive Family: Yes Good Rapport with Provider: Yes (but no outpatient psych/therapy providers) Interval History Identifying Information SONU RICHARDS is a 19-year-old man who currently lives in [place] with his mother and father, has a history of depression, ADHD, anxiety, speech and auditory processing disorders and was admitted on 04/09/25 22:33 on a 201 voluntary commitment for worsening depression and SI and rehearsal behaviors of using a knife. Chief Complaint "Pretty good". Review of Systems Sleep Information Total Hours of Sleep: 6.75 Meal Information Percent Meal Consumed - Breakfast: 25 Percent Meal Consumed - Lunch: 100 Percent Meal Consumed - Dinner: 90 Subjective Subjective Patient was seen & assessed and interval progress reviewed with nursing and social work. He's been attending groups. Watched a movie with peers. Rated his mood as "9" and "tired" last evening. Today he reports his mood is "pretty good" and reflects on being "glad" he is staying another day because he is finding new coping skills to use, like enjoying listening to music, and finding the groups beneficial. He slept well last night and finds clonidine beneficial for this. He denies any SI. Tolerating the higher dose of sertraline so far today, still lower appetite but no nausea and he feels his appetite is improving. He hasn't had any headaches today. He plans to reach out to [facility] today to ask any questions and schedule an intake. Physical Exam Psychiatric Orientation: alert and oriented x 3 Apperance: appropriately dressed and appropriately groomed Eye Contact: good eye contact Motor Behavior: no abnormal motor movements Speech: normal rate/rhythm/volume of speech Affect: + anxious affect Mood: + anxious mood Thought Process: goal directed thought process Thought Content: reality based without delusions Suicidal Thoughts: denies suicidal thoughts, denies suicidal plan and denies suicidal intent Homicidal Thoughts: denies homicidal thoughts Hallucinations: no auditory hallucinations and no visual hallucinations Cognition: recent memory grossly intact, remote memory grossly intact, attention grossly intact and language grossly intact Estimated Intelligence: consistent with education level Insight: + fair insight Judgment: + fair judgement Vital Signs (Past 24 Hours) Last Vital Signs Temp 36.7 C 04/12/25 06:33 Pulse 80 04/12/25 06:33 Resp 16 04/12/25 06:33 BP 121/84 04/12/25 06:35 Pulse Ox 97 04/12/25 06:33 O2 Del Method Room Air 04/12/25 06:33 Results & Data ([facility]) Current Inpatient Medications Current Inpatient Medications: Current Inpatient Medications Acetaminophen (Acetaminophen 325 Mg Tab) 650 mg PO Q4H PRN PRN Reason: Headache or Minor Fever Stop: 05/09/25 22:39 Al Hydrox/Mg Hydrox/Simethicone (Aluminum/Magnesium Susp 30 Ml Udc) 30 ml PO Q4H PRN PRN Reason: GI Upset Stop: 05/09/25 22:39 Albuterol (Albuterol Hfa 8 Gm Inhaler) 2 puffs INH QIDR PRN PRN Reason: Shortness Of Breath Or Wheezing Stop: 05/10/25 00:13 Albuterol (Albuterol 0.083% Nebu Soln 3 Ml Vial) 2.5 mg INH Q4H PRN; Protocol PRN Reason: shortness of breath or wheezing Stop: 05/10/25 11:36 Bismuth Subsalicylate (Bismuth Subsalicylate 262 Mg Chew) 2 tab PO Q30M PRN PRN Reason: Loose Stool/Diarrhea Stop: 05/09/25 22:39 Clonidine HCl (Clonidine Hcl 0.1 Mg Tab) 0.1 mg PO HS LEEANN Stop: 05/10/25 21:59 Last Admin: 04/11/25 20:55 Dose: 0.1 mg Hydroxyzine HCl (Hydroxyzine Hcl 25 Mg Tab) 50 mg PO HSZ PRN PRN Reason: Insomnia Stop: 05/09/25 22:39 Hydroxyzine HCl (Hydroxyzine Hcl 25 Mg Tab) 25 mg PO Q4H PRN PRN Reason: Anxiety Stop: 05/09/25 22:39 Lorazepam (Lorazepam 1 Mg Tab) 1 mg PO BID PRN PRN Reason: Agitation Stop: 05/09/25 22:42 Magnesium Hydroxide (Magnesium Hydroxide Susp 30 Ml Udc) 30 ml PO DAILY PRN PRN Reason: Constipation Stop: 05/09/25 22:39 Non-Formulary Medication (Cholecalciferol (Vitamin D3)) 1,250 mcg PO Mo@0900 LEEANN Stop: 05/10/25 11:44 Last Admin: 04/10/25 13:42 Dose: 1,250 mcg Sertraline HCl (Sertraline Hcl 50 Mg Tablet) 50 mg PO QAM LEEANN Stop: 05/12/25 08:59 Sodium Chloride (Sodium Chloride 0.65% Na Soln 45 Ml ([place])) 1 - 2 sprays NA PRN PRN PRN Reason: Nasal Dryness/Congestion Stop: 05/09/25 22:39 Trazodone HCl (Trazodone Hcl 50 Mg Tab) 50 mg PO HS PRN PRN Reason: insomnia Stop: 05/10/25 21:59 Mental Health & Subst Abuse Tx Psychiatrist Name of Psychiatrist: Sidra Barrios Psychiatrist's Date Of Appointment With Psychiatric Provider: 04/17/25 Time of Appointment with Psychiatrist: 9:40AM Psychiatric Appointment Comment: Virtual. Add'l paperwork will be sent to your mother's email addres Therapist Name of Therapist: [facility] Therapist's Ammonia Operator Name of Ammonia Operator: n/a Post Discharge Appointments Primary Care Physician Name Of Family Doctor/PCP: [facility] [place] [facility]
[2025-04-13 06:38] VITALS: BP 131/75; PULSE 66; TEMP 97.6; O2SAT 98
--- NOTE | 2025-04-13 08:51 | Discharge Summary ---
Date of Service April 13, 2025 History of Present Illness Marcus presents for psychiatric admission for worsening depression and SI over the past two months with recent plan of using a knife culminating in rehearsal behavior/near attempt of putting a knife to his neck and then sleeping with it under his pillow two nights ago. There have been no acute stressors or recent changes but he describes some more chronic psychosocial stressors including bullying/trauma in elementary/middle/high school and started a new job about 6 months ago which has been very busy and stressful at times. Two nights ago he had increased SI at bedtime and "I kind of felt manic, I couldn't sit still, I couldn't think" and neither of his friends was available to talk, his grandparents were asleep and his parents were at their home and he thought about using the knife and put it to his skin but then put it down and fell asleep with it next to his pillow. A few weeks ago he did look up where his heart is and where one would need to stab to harm the heart but he felt this research actually helped "demotivate me" because he read about how much pain it could cause and he decided he would not try to kill himself that way. He denies researching anything about where to cut himself on his neck and did not break the skin with the knife. He thought about how much his friends and family would be negatively impacted if he and that's what stopped him from acting on his suicidal thoughts. He ultimately texted his friend saying he'd miss her and she reached out to his parents. He presented to the ED the next day. He's been having suicidal thoughts for "months now" and that they have become more difficult to manage, describing feeling "mentally exhausted from constantly fighting these thoughts". He recalls having suicidal ideation for 5 years straight during childhood. He feels that typically he can cope with these using distraction but feels like due to worsening depression and feeling exhausted that two nights ago he felt unable to avoid acting on the thoughts. Recently he feels like "my brain went blank". He's been having a lot of headaches recently with some flickering light appearance. The headaches started right around the time he started escitalopram. He's been having a lot of nausea since starting the escitalopram and believes he's lost about 6 lbs in a few days. He endorses depressive symptoms including tearfulness, anhedonia ("everything feels like a chore"), decreased motivation ("hard to even brush my teeth for a week"), self-guilt ("I didn't feel like I deserved to live"), helplessness, hopelessness, decreased energy, decreased appetite (mostly due to nausea), and decreased sleep about 2-4 hours per night (difficulty falling asleep). SI has been occurring intermittently throughout his life but worsened about two months ago to daily thoughts which he notes "just gets taxing", he started to think about plans of using a knife about 3 weeks ago before he started the escitalopram. He identifies that not having his craving knife would help him feel safer and he plans to give this to his parents. He endorses symptoms of anxiety including generalized worries, shakiness, easily overwhelmed, can get worse in social situations and panic attacks (rare usually but increased recently to about 1-2 times per week). Anxiety has also increased over the last few months. He describes having intense interests as a child including "spending hours on equations" and describes being "hyper-curious about everything". He is currently prescribed escitalopram 10mg (started 2 weeks ago, had nausea and headaches since started it, hasn't noticed any benefits so far). Today he reports his mood feels better, "like a 9, today" because he feels that "the real world is stressful and taking a break from that can help". He notes that "typically I'm happy throughout the day and nighttime hits the hardest". Psychiatric ROS notable for possible history of hypomania with decreased need for sleep for 2-3 nights, and also reports always being a night owl but at times with some increased risk taking and increased energy. Possible OCD traits (will wash hands three times in a row until they feel "clean"); history fo excessive exercising to lose weight and restricting to lose eat and other times would binge eat, he feels this is stable currently; history of self-harm via pinching. Psychiatric ROS notable for no history or current symptoms of psychosis, PTSD. Physical Exam Vital Signs (Past 24 Hours) Last Vital Signs Temp 36.4 C 04/13/25 06:37 Pulse 66 04/13/25 06:37 Resp 16 04/13/25 06:37 BP 131/75 04/13/25 06:38 Pulse Ox 98 04/13/25 06:37 O2 Del Method Room Air 04/13/25 06:37 Principal Diagnosis Major Depressive Disorder Psychiatric Data See daily stay summary. In short, patient was engaged with the social/therapeutic milieu of the unit, safety was maintained and the patient was cooperative with care. Medication changes included discontinuation of escitalopram due to side effects, initiation of sertraline for MDD/ANETA/OCD, initiation of clonidine for ADHD & elevated BP and off-label for anxiety/insomnia and they tolerated this well. A support session was held and safety plan was completed prior to discharge. Recommend consideration for outpatient sleep study to rule out CALVIN due to history of depression, daytime fatigue, sleep difficulty, loud snoring observed during inpatient admission and moderate score on [place] sleepiness scale. They participated in safety planning and in discussions about ways to seek support and recognizing warning signs and utilizing coping skills. Reviewed ways to have their safety plan and contacts easily available should thoughts of SI re-emerge in the future. Reviewed importance of seeking emergency care should SI intensify, worsen or should they feel unsafe in the future which they agree to do. On the day of discharge they stated their mood was "pretty good" and remained future-oriented including spending time with family, seeing his cats, talking to his friends, relaxing and engaging in aftercare appointments for psychiatry, and therapy via [facility]. Day of Discharge Assessment Today the patient voices readiness for discharge. They note improvement in mood and anxiety. They deny thoughts of harm to self or others. Thoughts remain organized and they are clinically improved from admission. There is no evidence of psychosis. They improved in the hospital with support and medication adjustments. They agree to take medications as prescribed and keep follow-up appointments. At the time of the discharge they are deemed to be stable and appropriate for outpatient level of care. They are not deemed to be at imminent risk of harm to self or others. They are aware of emergency and crisis services. Knows to call 911 or go to nearest emergency care center if in a crisis which cannot be handled as an outpatient. Suicide risk assessment: Acute risk is low given improvement in mood and denial of SI, lack of access to lethal means, improvement in sleep, hopefulness. Chronic risk is moderate given some non-modifiable risk factors: psychiatric co-morbid diagnoses, periods of impulsivity, prior attempt, hx self-harm, childhood trauma but also with protective factors including employed, good social support, sense of responsibility to family and social supports, outpatient care in place, positive coping skills, positive problem solving, willingness to engage with treatment and self-observation. Counseled on ways to reduce acute and chronic risk including engaging with outpatient providers, using safety plan if needed, utilizing supports, taking medication, and using coping skills. Modifiable risk factors of SI, insomnia and depression were addressed during hospitalization through development of new coping skills, support meeting, safety planning, and medication adjustments. Discharge physical exam: See admission H&P, MSE per above and day of discharge summary. Overall, I spent a total of 35 minutes on this case including meeting with the patient, reviewing the chart, nursing report, multidisciplinary team meeting, discharge orders, anticipatory planning, safety planning, risk assessment and documentation. Transition of Care Transition Of Care Record: was reviewed with the patient Advance Directives Advance Directives Information Provided: Yes Advance Directives: No Mental Health Advance Directive: No Advance Directives on File: No Living Will: No Power of Registered Nurse Float Pool: No Advance Directives Reason:: Declines as Mental Health Visit. Suicide Risk Level Suicide Risk Level Comments: see assessment above Risk Factors Assessment Male: Yes : Yes Do You Have Access To A Gun?: No (guns locked and he has no access to keys) Health Problems: Yes Mental Health Diagnoses: Yes Substance Use Disorders: No Previous Attempt: Yes Family History of Suicide: Yes (cousin with attempt) Previous Psychiatric Hospitalization: No Hopelessness: No Protective Factors Assessment : No Responsible for Young Children: No Employed: Yes ([employer]) Stable Relationships: Yes Supportive Family: Yes Good Rapport with Provider: Yes (but no outpatient psych/therapy providers) Discharge Data Lab Results 04/09/25 04/09/25 19:32 19:38 WBC 15.90 H RBC 6.00 Hgb 17.5 Hct 49.2 MCV 82.0 MCH 29.2 MCHC 35.6 RDW Std Deviation 37.7 RDW Coeff of Bobbi 12.6 Plt Count 365 MPV 10.9 Immature Gran % (Auto) 0.4 Neut % (Auto) 73.9 Lymph % (Auto) 19.9 Crenshaw % (Auto) 4.7 Eos % (Auto) 0.6 Baso % (Auto) 0.5 Neut # (Auto) 11.75 H Lymph # (Auto) 3.16 Crenshaw # (Auto) 0.75 H Eos # (Auto) 0.09 Baso # (Auto) 0.08 Immature Gran # (Auto) 0.07 Sodium 139 Potassium 3.6 Chloride 105 Carbon Dioxide 23 Anion Gap 11 BUN 14 Creatinine 0.99 Est Cr Clr Drug Dosing 148.6 eGFR 111.84 BUN/Creatinine Ratio 14.1 Glucose 124 H Calcium 9.6 Total Bilirubin 0.8 AST 22 ALT 32 Alkaline Phosphatase 84 Total Protein 8.3 Albumin 4.6 Globulin 3.7 Albumin/Globulin Ratio 1.2 TSH 2.671 Urine Color Yellow Urine Appearance Clear Urine pH 6.0 Ur Specific [place] 1.027 Urine Protein 1+ H Urine Glucose (UA) Negative Urine Ketones Trace H Urine Blood Negative Urine Nitrite Negative Urine Bilirubin Negative Urine Urobilinogen Negative Ur Leukocyte Esterase Negative Urine WBC (Auto) 0-5 Urine RBC (Auto) 0-2 U Hyaline Cast (Auto) 0-2 U Epithel Cells (Auto) 0-2 Urine Bacteria (Auto) None Seen Urine Comment Salicylates < 3.0 L Urine Opiates Screen Neg Ur Methadone, Qual Neg Urine Fentanyl Screen Neg Acetaminophen < 3 L Urine Barbiturates Neg Ur Phencyclidine (PCP) Neg U Amphetamin/Meth Scrn Neg MDMA (Ecstasy) Screen Neg U Benzodiazepines Scrn Neg Ur Cocaine Metabolite Neg U Marijuana (THC) Screen Neg Ethyl Alcohol mg/dL < 10.0 SARS-CoV-2, RNA, NAAT NEGATIVE Hospital Course (1) Depression with suicidal ideation: (2) Generalized anxiety disorder with panic attacks: (3) Obsessive compulsive disorder: (4) ADHD: (5) Vitamin D deficiency: (6) Eosinophilic esophagitis: (7) Major depressive disorder with current active episode: (8) Trauma and stressor-related disorder: Plan 04/13/2025: -He feels safe and desires discharge today 04/12/2025: -Continue current medications and treatment plan 04/11/2025: -Increase sertraline to 50mg daily tomorrow -Exploring IOP vs individual outpt therapy 04/10/2025: The patient was admitted to the [facility] ([facility]) on q15 min checks (behavioral with suicide precautions) for safety. The patient will participate in group, recreational, and milieu therapies and will be offered additional individual and family sessions as clinically appropriate. -Medications: * discontinue escitalopram due to ongoing side effects * start sertraline 25 mg daily * start trazodone 50mg HS prn for insomnia * start clonidine 0.1mg HS * continue Vit D supplementation qweekly -Symptom questionnaires: Laurent BPD, MDQ, PHQ-9, ANETA-7, Y-BOCS, [place] sleepiness scale - to explore outpatient referrals, we discussed option for IOP to focus on CBT/DBT skills which he's interested in -Consider outpatient sleep study (he had one in childhood prior to tonsillectomy) given concern for possible CALVIN Mental Health & Subst Abuse Tx Psychiatrist Name of Psychiatrist: Sidra Barrios Psychiatrist's Date Of Appointment With Psychiatric Provider: 04/17/25 Time of Appointment with Psychiatrist: 9:40AM Psychiatric Appointment Comment: Virtual. Add'l paperwork will be sent to your mother's email addres Therapist Name of Therapist: [employer] Therapist's Date of Therapist Appointment: 04/16/25 Time of Therapist Appointment: 12:30PM Therapy Appointment Comment: Virtual. Link will be sent to your mother's email address Tool And Machine Maintainer Name of Tool And Machine Maintainer: n/a Post Discharge Appointments Primary Care Physician Name Of Family Doctor/PCP: Ron Roldan - [facility] Date of Future Appointment with PCP: 04/18/25 Time of Appointment with PCP: 1PM Provider Appointment Comment: [address] [place] [id number] Contact Information Discharge Discharge [address]: [address] [place] [id number] Discharge Plan Discharge Items Patient Disposition: Home - Self-Care Reason For Visit: UNSPECIFIED MOOD DISORDER Discharge Diagnosis: Major Depressive Disorder Condition on Discharge: Good Activity: Resume your previous activity Non-emergency contact: Primary Care Provider, Psychiatrist and Therapist Call non-emergency contact if: you have any medication questions and your symptoms worsen Follow-up/Referrals: Ron Roldan, [Primary Care Provider] - Diet: Regular Addtl Attending Provider Instructions: Optional mobile apps we discussed: -Suicide safety plan -Virtual Hope Box SPECIAL CARE INSTRUCTIONS: 1. Follow through with your scheduled aftercare appointments. If unable to keep an appointment, please call to reschedule. 2. Take your medication only as prescribed. Medication should not be changed or stopped without the approval of your doctor. In the event of worsening symptoms or concerns about side effects, contact your doctor immediately. 3. Utilize new healthy coping skills, anger management skills, and stress management skills learned during your hospitalization. Journal feelings and process them with a support person. Identify stressors or situations that may result in relapse, deterioration or inappropriate behaviors and develop a plan to deal with those issues. 4. If your coping skills are ineffective and you are in crisis, contact your outpatient providers for direction. If unable to reach your providers, please call the [facility] CRISIS LINE AT , go to the [facility] walk-in center at [address], [address], [place], or go to the closest Emergency Room. 5. Avoid alcohol and un-prescribed drugs. 6. You have been provided with the Mental Health Advance Directives Pamphlet for your review. 7. Your condition is stable for discharge to outpatient level of care, but recovery is an ongoing process. Ifthoughts to harm yourself or others return, follow the safety plan developed during your stay. Planning for a safe return home includes securing weapons. Our treatment team recommends weaponsbe removed from the home until your outpatient provider reassesses your progress. In rare cases where the items themselvescannot be removed, guns and ammunitionshould be secured separatelyand keys stored by a reliable personoutside of the home. If you were admitted on an involuntary commitment, the police or other legal authorities may be involved in this process. AFTERCARE APPOINTMENTS: * Please call your insurance company prior to your scheduled appointment to confirm your aftercare providers are covered. Take your insurance information to your appointments. WHO TO CALL AND WHEN: Medical Emergencies: For questions or emergencies related to your hospital stay, please contact the Inpatient Behavioral Health Unit at [phone]. A metal burnisher is on-call 23/11 for the Behavioral Health Unit for emergencies At any time you feel your situation is an emergency, you may also call 911 immediately. National Crisis Hotline: 692 Pending Studies at Discharge: No Stand-Alone Forms: My [facility] Medications and DC Order Prescriptions: New clonidine HCl 0.1 mg Tablet 0.1 mg PO HS 30 Days Qty: 30 0RF sertraline 50 mg Tablet 50 mg PO QAM 30 Days Qty: 30 0RF Continued epinephrine 0.3 mg/0.3 mL auto-injector 0.3 mg IM ONCE PRN (Reason: anaphylaxis) Qty: 1 3RF Patient Comments: never used. Rx Instructions: May repeat once in 10 minutes if symptoms have not improved with first dose dupilumab 300 mg/2 mL pen injector 300 mg subcut .COMPLEX Qty: 8 11RF Rx Instructions: INJECT 300 mg subcutaneously EVERY MONTH APPROVED GOOD 05/27/23-07/24/24 albuterol sulfate 2.5 mg /3 mL (0.083 %) solution for nebulization 2.5 mg inhalation Q4H PRN (Reason: shortness of breath or wheezing) Qty: 90 6RF Patient Comments: patient reports it was several weeks ago when he last used this medication. cholecalciferol (vitamin D3) 1,250 mcg (50,000 unit) capsule 1,250 mcg PO .weekly 56 Days Qty: 8 0RF Discontinued escitalopram oxalate [Lexapro] 10 mg tablet 10 mg PO DAILY Discharge Orders: Discharge Order (Routine); Ordered 04/13/25 Ordered By: Clarissa Barone Admission Data Admit Date/Time: 04/09/25 22:33 Attending Provider: Clarissa Barone Admit Provider: Clarissa Barone Primary Care Provider: Ron Roldan Other Interventions: Discharge Summary Assessment (RN) Last Done: 04/13/25 10:03 Coding Level of Care Code 88571 D/C day mgmt > 30 min Diagnoses Depression with suicidal ideation F32.A; R45.851 Generalized anxiety disorder with panic attacks F41.1; F41.0 Obsessive compulsive disorder F42.9 ADHD F90.9 Vitamin D deficiency E55.9 Eosinophilic esophagitis K20.0 Major depressive disorder with current active episode F32.9 Trauma and stressor-related disorder F43.9
== END 2025-04-13 10:42 | disposition home or self-care (01) | DRG 881 ==
LOC: ED 19:09 → 3S 22:20